=== PATIENT | female | born 1960 | race African-American/Black ===

== ENCOUNTER → 2021-05-23 | Outpatient (CLI) | payer BC ==
[~2021-05-23] MED LIST: ASPIRIN EC81 MG PO; ELIQUIS 2.5 MG2.5 MG PO; FEROSUL325 MG PO; GLUCOPHAGE500 MG PO; INVANZ 1 GM VIAL1 GM IV; LEVEMIR100 UNIT/1 SQ; LIPITOR TAB 2020 MG PO; LORTAB 7.5-3251 EACH PO; PERCOCET 10-321 EACH PO; PROZAC 20 MG CA20 MG PO; SENOKOT-S TABL1 EACH PO; VITAMIN B-1000 MCG/M IM; VOLTAREN100 GM TP
== END ==
LOC: MAMO 09:00
DX: Z12.31 Encounter for screening mammogram for malignant neoplasm of breast (principal)
CPT/HCPCS: 77063; 77067